=== PATIENT | male | born 1990 | race African-American/Black ===

== ENCOUNTER 2016-10-18 12:39 | Emergency (ER) | payer BC, SELFPAY ==
[2016-10-18] MEDS ORDERED: predniSONE 20 MG TAB ONE (12:55)
== END 2016-10-18 13:50 | disposition home or self-care (01) ==
LOC: BURERS 12:39
DX: J45.21 Mild intermittent asthma with (acute) exacerbation (principal); F17.210 Nicotine dependence, cigarettes, uncomplicated; Z79.899 Other long term (current) drug therapy
CPT/HCPCS: J7506; J7620

== ENCOUNTER 2016-12-26 03:31 | Emergency (ER) | payer BC ==
[2016-12-26] MEDS ORDERED: Triamcinolone 40 MG/ML VIAL ONE (04:23)
--- NOTE | 2016-12-26 07:23 | RAD ---
CHEST 2 VIEWS: Date: 12/26/16 The heart is normal in size and the lungs are clear. No lobar pneumonia or pleural effusion seen. No mediastinal abnormality present. At most, there might be a little bit of perihilar streaking, but t his finding is equivocal. IMPRESSION: No evidence of pneumonia or other definite acute findings. POS: HOME
== END 2016-12-26 04:45 | disposition home or self-care (01) ==
LOC: BURERS 03:31
DX: J06.9 Acute upper respiratory infection, unspecified (principal); J45.909 Unspecified asthma, uncomplicated; F17.210 Nicotine dependence, cigarettes, uncomplicated
CPT/HCPCS: 71020; 94640; 94760; 96372; J3301; J7620